=== PATIENT | female | born 1975 | race Caucasian/White ===

== ENCOUNTER 2024-05-28 17:31 | Emergency (ER) | payer OTHER, SELFPAY ==
--- NOTE | ~2024-05-28 | XR_ITS ---
XR ankle LT min 3V Ordering provider: Danelle Cavanaugh NP History: . fell while hiking Friday while in [place],lateral pain . Comparison: None. FINDINGS: BONES: No definite fracture above the Possibility of a fracture line in the lateral malleolus cannot be excluded. Follow-up in 10 days is advised. Clinical correlation for tenderness in the area is advi sed.. JOINT SPACES: The ankle mortise is normal. SOFT TISSUES: Minimal soft tissue swelling over the lateral malleolus. Ossification of the insertion of the tendo Achilles. IMPRESSION: No definite acute osseous abnormality left ankle. Possibility of lucency in the lateral malleolus can not be excluded. Follow-up in 10 days is advised. Reviewed, dictated and finalized at location A. IMPRESSION: No definite acute osseous abnormality left ankle. Possibility of lucency in the lateral malleolus cannot be excluded. Follow-up in 10 days is advised.
[2024-05-28 17:49] VITALS: BP 156/92; PULSE 71; RESP 16; TEMP 36.6; O2SAT 100
--- NOTE | 2024-05-28 17:50 | ED.EXTPRO ---
HPI - Extremity Problem General Chief complaint: Extremity Problem,Nontraumatic Stated complaint: Left Foot Injury Time Seen by Provider: 05/28/24 17:50 Source: patient, RN notes reviewed and old records reviewed Mode of arrival: ambulatory Limitations: no limitations History of Present Illness HPI Narrative: 48 year old female who presents to express care with complaints of pain and swelling of her left ankle since falling while hiking on vacation in [facility] on Friday. Patient reports that her pain has increased to her lateral ankle region since it occurred and also the swelling. Patient has been walking on her ankle since injury occurred. She has taken Ibuprofen for her discomfort and has been elevating her foot, has not been applying ice at regular intervals. MD Complaint: extremity pain, extremity swelling and other (pain lateral ankle) Onset (ago): day(s) (5 days) Pain Consistency: intermittent Location: left and lower extremity (lateral ankle) Severity scale (1-10): 4 Quality: aching Exacerbating factors: weight bearing and other (movement) Related Data Home Medications Medication Instructions Recorded Confirmed No Home Medications 05/28/24 05/28/24 Allergies Allergy/AdvReac Type Severity Reaction Status Date / Time No Known Allergies Allergy Unknown Verified 05/28/24 17:46 Review of Systems Review of Systems: CONSTITUTIONAL: Denies fever, chills, or sweats. CARDIOVASCULAR: Denies chest pain, palpitations, or edema. RESPIRATORY: Denies cough or dyspnea. SKIN: Denies rash or itching. Denies laceration or abrasions MUSCULOSKELETAL: Reports pain and swelling to her left lateral ankle since injury when she fell while hiking on vacation on Friday, reports increased swelling NEUROLOGIC: Denies numbness, or weakness. All systems reviewed & are unremarkable except as noted in HPI and below PMFSH Surgical History Surgical History (Updated 05/28/24 @ 19:09 by Danelle Cavanaugh NP) H/O: hysterectomy History of dilatation and curettage 2000 Social History Social History (Updated 05/28/24 @ 19:10 by Danelle Cavanaugh NP) Smoking status: Never smoker Alcohol intake: current Substance use type: does not use Living arrangements: with family Gender identity (if verbalized by the patient): Female Comments At time of signature, agree with nursing past medical, surgical, social and family history. There is no relevant family history pertinent to the presenting complaint Exam Narrative: GENERAL: Well-appearing, well-nourished, and in no acute distress. HEAD: Normocephalic, atraumatic. EYES: PERRLA and EOMI. ENT: Nares clear, no rhinorrhea or epistaxis. Mucous membranes moist. NECK: Supple. no lymphadenopathy CHEST: Clear to auscultation. No respiratory distress. SAO2 100% on room air HEART: Regular rate and rhythm. No murmur heard. Normal peripheral pulses. ABDOMEN: Soft, nontender, nondistended, normal active bowel sounds. EXTREMITIES: Normal range of motion. No edema.Exception noted to lateral left ankle pain and swelling with increase in discomfort and swelling since initial injury. strong pedal pulse left foot, foot warm and pink. Patient is able to dorsiflex, and plantar flex foot without difficulty. palpable tenderness and swelling lateral ankle SKIN: Warm, dry, no rash. NEURO: No focal deficits. Alert and oriented x3. Course Course Emergency Course: Patient is aware of diagnosis, understands and agrees to treatment plan. Anticipatory guidance given. Patient agrees to follow-up as directed and is aware of reasons to seek care at the emergency department. Portions of this record may have been created with voice recognition software Level of Care: Express Care Visit Vital Signs Vital signs: Vital Signs Temperature 36.6 C 05/28/24 17:49 Pulse Rate 71 05/28/24 17:49 Respiratory Rate 16 05/28/24 17:49 Blood Pressure 156/92 H 05/28/24 17:49 Pulse Oximetry 100 05/28/24 1
== END 2024-05-28 18:48 | disposition home or self-care (01) ==
PROVIDERS: Emergency Provider Registered Nurse; PCP Family Medicine
DX: S93.402A Sprain of unspecified ligament of left ankle, initial encounter (principal); S96.912A Strain of unspecified muscle and tendon at ankle and foot level, left foot, initial encounter; W19.XXXA Unspecified fall, initial encounter; Y93.01 Activity, walking, marching and hiking
CPT/HCPCS: 73610; 99213; G0463